=== PATIENT | female | born 1985 | race Caucasian/White ===

== ENCOUNTER → 2016-08-04 | Outpatient (REF) | payer OTHER | LOC: M SFHCLUC 12:45 | PROVIDERS: ATTEND Nurse Practitioner Family | DX: J06.9 Acute upper respiratory infection, unspecified (principal) ==

== ENCOUNTER → 2016-11-11 | Outpatient (REF) | payer OTHER | LOC: M SFHCLERA 09:19 | PROVIDERS: ATTEND Physician Assistant | DX: J02.9 Acute pharyngitis, unspecified (principal) ==

== ENCOUNTER → 2016-12-05 | Outpatient (REF) | payer OTHER ==
[2016-12-05 19:37] LABS: MEAN CORPUSCULAR HEMOGLOBIN 30.1 pg (27.0-33.0); MEAN CORPUSCULAR HGB CONC 35.1 g/dl (32.0-36.5); MEAN CORPUSCULAR VOLUME 85.8 fl (80.0-96.0); RED CELL DISTRIBUTION WIDTH 12.5 % (11.5-14.5); WHITE BLOOD COUNT 7.7 K/mm3 (4.0-10.0)
[2016-12-05 20:32] LABS: ALBUMIN 3.7 GM/DL (3.2-5.2); ALBUMIN/GLOBULIN RATIO 1.09 (1.00-1.93); ALKALINE PHOSPHATASE 70 U/L (45-117); ALT/SGPT 32 U/L (12-78); ANION GAP 8 MEQ/L (8-16); AST/SGOT 17 U/L (15-37); BILIRUBIN,TOTAL 0.3 MG/DL (0.2-1.0); BLOOD UREA NITROGEN 9 MG/DL (7-18); CALCIUM LEVEL 8.9 MG/DL (8.5-10.1); CARBON DIOXIDE LEVEL 26 MEQ/L (21-32); CHLORIDE LEVEL 103 MEQ/L (98-107); CREATININE FOR GFR 0.89 MG/DL (0.55-1.02); FREE T4 1.09 NG/DL (0.76-1.46); GLOMERULAR FILTRATION RATE > 60.0 (>60); GLUCOSE, FASTING 93 MG/DL (70-105); SODIUM LEVEL 137 MEQ/L (136-145); TOTAL PROTEIN 7.1 GM/DL (6.4-8.2)
== END ==
LOC: M SFHCLERA 16:26
PROVIDERS: ATTEND Family Medicine
DX: R63.4 Abnormal weight loss (principal)

== ENCOUNTER → 2019-06-03 | Outpatient (REF) | payer BC | LOC: M SFHCLERA 14:43 | PROVIDERS: ATTEND Physician Assistant | DX: J02.9 Acute pharyngitis, unspecified (principal) ==

== ENCOUNTER → 2019-08-02 | Outpatient (REF) | payer BC | LOC: M SFHCWAGY 09:28 | PROVIDERS: ATTEND Advanced Practice Midwife | DX: Z36.85 Encounter for antenatal screening for Streptococcus B (principal) ==

== ENCOUNTER 2019-08-22 16:30 | Inpatient (IN) | payer BC ==
[2019-08-22] VITALS (18 sets, daily range): BP systolic 111–145; BP diastolic 55–79
[~2019-08-22] VITALS: Ht 165.1 cm; Wt 115.3 kg
[2019-08-22] MEDS ORDERED: PENICILLIN G POTASSIUM IV 5 MU in D5W MINI-BAG PLUS 100 ML IV STA (17:15)
--- NOTE | 2019-08-22 17:23 | HPEPDOC ---
Obstetrical History & Physical General Date of Admission 08/22/2019 History of Present Illness Heidi Barragan is a 34-year-old female who presented to the labor and delivery suite following reported spontaneous rupture of membranes while in [place]. No contractions. No bleeding. Good movement. Pt called the NURSING DIRECTOR office and was advised by Keyon Quinones MD to come to L&D for evaluation. Chief Complaint: Rupture of membranes Information Provided By: Patient Age: 34 : 2 Term: 1 Pre-term: 0 Abortions: 0 Livin Care Care: Good Care Number of Visits: 8 Dating Final EDC: Sep 02, 2019 Final EDC by: 1st trimester (US) LMP: Nov 26, 2018 Antepartum Course Pre- weight (lbs.): 227 Past Medical History Past Obstetrical History : Past Obstetrical History: Multigravida Date of Delivery: Apr 04, 2007 Type of Delivery: Ceserean section Sex of : Male Complications: Yes Past Medical History Medical History Mastitis 2014, Fibroadenoma of breast 2018 Surgical History: Appendectomy (2011), section (2006), Tonsilectomy (2003), Other (L breast biopsy 2018; L knee surgery 2011, LEEP 2006) Family History Significant Family History: Cancer (Paternal Grandfather: colon cancer; Maternal Aunts: breast cancer), Other (1 brother and 1 sister, both with unspecified thyroid issues) Social History Marital Status: Family situation: Spouse/partner home Psychosocial History: No pertinent psych hx * Smoker: non-smoker Alcohol: Denies Drugs: denies Abuse Violence Screening Have you been hit/kicked/slapp: No Have you been sexually assault: No Allergies Coded Allergies: MS - Aminoglycosides (Unverified Allergy, Unknown, ERYTHEMA, 09/17/12) Replaces NEOMYCIN/POLY2 MS - Gramicidin (Unverified Allergy, Unknown, ERYTHEMA, 09/17/12) Replaces NEOMYCIN/POLY2 MS - Latex (Verified Allergy, Unknown, 09/17/12) MS - Neomycin (Unverified Allergy, Unknown, ERYTHEMA, 09/17/12) Replaces NEOMYCIN/POLY2 MS - Polymyxin B (Unverified Allergy, Unknown, ERYTHEMA, 09/17/12) Replaces NEOMYCIN/POLY2 Physical Examination Physical Examination GENERAL: Alert and oriented times three. BREAST: . ABDOMEN: Gravid and non-tender to touch. FETUS: Is vertex (VTX) by sterile vaginal examination (SVE), fetus is vertex (VTX) by Matt. HEART RATE: Regular rate and rhythm. LUNGS: Clear to auscultation (CTA). EXTREMITIES: No edema. No clonus. Pertinent Laboratoy Data Blood Type: A+ RBC Antibody Screen: Negative HIV: Negative Hepatitis B: Negative Hepatitis C: Negative Rapid Plasma Reagin: Nonreactive Rubella: Immune Varicella: Immune Chlamydia/Gonorrhea: Negative Group B Streptococcus: Positive Quad Screen Test: Declined Cystic Fibrosis: Declined Steroid Therapy Steroid Therapy: No Vaginal Examination Dilation: 1cm Effacement: 80% Station: -2 Cervical Consistency: Soft Cervical Position: Posterior Presentation: Cephalic presentation Position: Vertex (occiput) Assessment/Plan Assessment Heidi Barragan is a 34-year-old (G)2 para (P)1-0-0-1 at 38+3 weeks by LMP. Presents to Labor and Delivery (L&D) following reported spontaneous rupture of membranes while in [place]. Plan 1. Pt is admitted to L&D. 2. Pt counseled regarding her care and consented to the following plan. 3. Diet: Regular. 4. Group B Streptococcus (GBS) positive. Will treat with antepartum antibiotics. 5. Labs and intravenous (IV) per unit protocol. 6. Induction of labor was discussed with pt and she desired this course of action. 7. VDAC planned. Pt is aware of risks involved. GME ATTESTATION GME ATTESTATION My faculty preceptor for this patient encounter was physically present during the encounter and was fully available. All aspects of the patient interview, examination, medical decision making process, and medical care plan development were reviewed and approved by the faculty preceptor. The faculty preceptor is aware and concurs with the plan as stated in the body of this note and will attest to such by his/her cosignature. RENEE PIERRE OMS-III Aug 22, 2019 17:23
[2019-08-22] MEDS ORDERED: OXYTOCIN DRIP 30 UNITS in IV 1 EA IV SCH (17:30)
[2019-08-22] MEDS ORDERED: PREN29TA4 PO (17:41)
[2019-08-22 18:13] LABS: HEMATOCRIT 35.4 % (36.0-47.0); HEMOGLOBIN 11.3 g/dl (12.0-15.5); MEAN CORPUSCULAR HEMOGLOBIN 26.6 pg (27.0-33.0); MEAN CORPUSCULAR HGB CONC 31.9 g/dl (32.0-36.5); MEAN CORPUSCULAR VOLUME 83.3 fl (80.0-96.0); PLATELET COUNT, AUTOMATED 255 10^3/uL (150-450); RED BLOOD COUNT 4.25 10^6/uL (4.00-5.40); WHITE BLOOD COUNT 10.4 10^3/uL (4.0-10.0)
[2019-08-22] MEDS: LR 1,000 ML IV SCH ×2 (18:21→23:08)
[2019-08-22] MEDS ORDERED: PROMETHAZINE INJ 25 MG/ML VIAL (J2550) IV ONE (20:30)
[2019-08-22] MEDS ORDERED: BUTORPHANOL 2 MG/ML INJ (J0595) IV ONE (20:30)
[2019-08-22] MEDS ORDERED: FENTANYL 2MCG/ML ROPIVACAINE 0.2% IN 0.9% NACL 100ML IVBAG As Ordered ONE (22:05)
[2019-08-22] MEDS: PENICILLIN G POTASSIUM IV 2.5 MU in IV 1 EA IV SCH (23:07)
[2019-08-22] MEDS ORDERED: diphenhydrAMINE INJ 50MG/ML VIAL (J1200) IV PRN (23:30)
[2019-08-22] MEDS ORDERED: FENTANYL/ROPIVACAINE/NACL BAG 100 ML EPIDURAL SCH (23:30)
[2019-08-22] MEDS ORDERED: EPIDURAL/PCA KEYS XX PRN (23:30)
[2019-08-22] MEDS ORDERED: LACTATED RINGER'S 1000 ML IV PRN (23:30)
[2019-08-22] MEDS ORDERED: NALOXONE INJ 0.4 MG/1 ML VIAL (J2310) IV PRN (23:30)
[2019-08-22] MEDS ORDERED: REFRIGERATOR IV KEYS XX PRN (23:30)
[2019-08-22] MEDS ORDERED: ePHEDrine SULFATE 25 MG/5 ML(5MG/ML) SYRINGE IV PRN (23:30)
[2019-08-22] MEDS ORDERED: ONDANSETRON 4MG/2ML VIAL (J2405) IV PRN (23:30)
[2019-08-22] MEDS ORDERED: EPIDURAL COMMENT XX SCH (23:30)
[2019-08-23] VITALS (17 sets, daily range): BP systolic 107–135; BP diastolic 51–70
[2019-08-23] MEDS: PENICILLIN G POTASSIUM IV 2.5 MU in IV 1 EA IV SCH (02:28)
[2019-08-23] MEDS ORDERED: OXYTOCIN DRIP 30 UNITS in IV 1 EA IV ONE (05:30)
[2019-08-23] MEDS ORDERED: ACETAMINOPHEN TAB 650MG DOSE (2X325MG) PO PRN (05:30)
[2019-08-23] MEDS ORDERED: MEASLES,MUMPS,RUBELLA VACCINE INJ (MMR-II) (90707) SC SCH (05:30)
[2019-08-23] MEDS ORDERED: DOCUSATE SODIUM 100 MG CAP PO PRN (05:30)
[2019-08-23] MEDS ORDERED: METHYLERGONOVINE MALEATE 0.2 MG TAB PO PRN (05:30)
[2019-08-23] MEDS ORDERED: IBUPROFEN 600 MG TAB PO PRN (05:30)
[2019-08-23] MEDS ORDERED: ACETAMINOPHEN 500 MG TAB PO PRN (05:30)
[2019-08-23] MEDS ORDERED: RHOGAM 300 MCG (1500 IU) INJ (J2790) IM SCH (05:30)
[2019-08-23] MEDS ORDERED: DIBUCAINE 1% OINTMENT 30GM TOP PRN (05:30)
[2019-08-23] MEDS: IBUPROFEN 800 MG TAB PO PRN ×2 (05:51→15:15)
[2019-08-23] MEDS ORDERED: CALCIUM CARBONATE 500 MG CHEW U/D PO PRN (06:15)
[2019-08-23] MEDS: PRENATAL VITAMINS CHEWABLE TABLET PO SCH (09:44)
[2019-08-24] MEDS: IBUPROFEN 800 MG TAB PO PRN (04:41)
[2019-08-24 05:56] VITALS: BP 118/64
--- NOTE | 2019-08-24 07:37 | IPNPDOC ---
Progress Note Date of Service: Aug 24, 2019 Day#: 1 Progress Note SUBJECT: Heidi is a 34-year-old status post uncomplicated spontaneous vaginal delivery after doing well day # 1. She has been ambulating, voiding spontaneously without issue and tolerating regular diet. Breast feeding with nipple shield assistance. Reports soreness, but no nipple cracking or redness. Reports lochia is like a normal period. Reports some cramping with . OBJECTIVE: VITAL SIGNS: Within normal limits, afebrile. Alert and oriented times three. Breath sounds clear to auscultation. Heart rate: Regular rate and rhythm, no murmurs, rubs or gallops. Abdomen: Fundus firm at U-1. Soft, appropriately tender. Minimal lochia. ASSESSMENT: day #1. PLAN: 1. Discharge to home tomorrow. 2. Tylenol and Motrin for pain. 3. Encourage breast feeding and ambulation. Encourage lanolin use. 4. Routine care. VS, I&O, 24H, Fishbone Vital Signs/I&O Vital Signs Date Time Temp Pulse Resp B/P (MAP) Pulse Ox O2 Delivery O2 Flow Rate FiO2 08/24/19 05:56 98.1 77 18 118/64 (82) 08/23/19 05:30 98 Room Air I&O- Last 24 Hours up to 6 AM 08/24/19 06:00 Intake Total 500 ml Output Total 750 ml Balance -250 ml Arielle Almanza CNM Aug 24, 2019 07:37
[2019-08-24] MEDS: PRENATAL VITAMINS CHEWABLE TABLET PO SCH (09:05)
--- NOTE | 2019-08-24 10:31 | DN ---
DATE OF DELIVERY: 08/23/2019 PREDELIVERY DIAGNOSIS: 38-3/7 weeks gestation, spontaneous rupture of membranes, early labor, trial of labor after (TOLAC). POSTDELIVERY DIAGNOSIS: Delivered. PROCEDURE: Spontaneous vaginal delivery. CURRICULUM WRITER: Keyon Quinones MD ANESTHESIA: Epidural. ESTIMATED BLOOD LOSS: 300 mL. FINDINGS: 6 pound 13 ounce female . scores 8 and 9. DELIVERY SUMMARY: After a 10 minute second stage, the patient had spontaneous delivery of a 6 pound 13 ounce female , scores 8 and 9 under epidural anesthesia. There was no nuchal cord. The shoulders delivered with ease. The cried immediately and was handed to the mother. The cord was doubly clamped and cut. The placenta delivered spontaneously and appeared to be intact. The patient received IV Pitocin immediately after delivery of the placenta. A first-degree perineal laceration was repaired with 2-0 chromic in the usual fashion. Sponge counts were correct.
== END 2019-08-24 13:37 | disposition home or self-care (01) | DRG 560 ==
LOC: M LDO 16:30 → M LDI 17:06 → M OBS 08-23 08:36
PROVIDERS: ADMIT Specialist; ATTEND Specialist
PROC: 10E0XZZ Delivery of Products of Conception, External Approach (ICD-10-PCS; principal; 2019-08-23)
PROC: 0HQ9XZZ Repair Perineum Skin, External Approach (ICD-10-PCS; 2019-08-23)
DX: O34.211 Maternal care for low transverse scar from previous cesarean delivery (principal); Z3A.38 38 weeks gestation of pregnancy; O70.0 First degree perineal laceration during delivery; Z37.0 Single live birth

== ENCOUNTER → 2020-02-14 | Outpatient (REF) | payer BC, MEDICAID ==
[~2020-02-14] MED LIST: PREN29TA4 PO
== END ==
LOC: M WHC 10:00
PROVIDERS: ATTEND Specialist
DX: Z12.4 Encounter for screening for malignant neoplasm of cervix (principal)

== ENCOUNTER → 2021-04-29 | Outpatient (REF) | payer BC, MEDICAID ==
[2021-04-29 17:40] LABS: C REACTIVE PROTEIN QUANTITATIV 0.42 MG/DL (0.00-0.30); MAGNESIUM LEVEL 2.3 MG/DL (1.8-2.4); PHOSPHORUS LEVEL 3.5 MG/DL (2.5-4.9)
[2021-04-29 18:39] LABS: TOTAL 25(OH) VITAMIN D 33.8 NG/ML (30.0-100.0)
== END ==
LOC: M SFHCRHEU 14:58
PROVIDERS: ATTEND Internal Medicine
DX: M79.10 Myalgia, unspecified site (principal); R79.82 Elevated C-reactive protein (CRP); M54.9 Dorsalgia, unspecified

== ENCOUNTER → 2021-08-30 | Outpatient (CLI) | payer BC, MEDICAID | LOC: M RAD 07:37 | PROVIDERS: ATTEND Internal Medicine | DX: M54.9 Dorsalgia, unspecified (principal) ==

== ENCOUNTER 2023-01-31 10:32 | Emergency (ER) | payer BC, MEDICAID ==
[~2023-01-31] VITALS: Ht 165.1 cm; Wt 98.5 kg
[2023-01-31 12:05] LABS: BASO # 0.1 10^3/uL (0.0-0.2); BASO % 0.8 % (0.0-1.0); EOS # 0.3 10^3/uL (0.0-0.5); EOS % 3.9 % (0.0-3.0); HEMATOCRIT 43.9 % (36.0-47.0); HEMOGLOBIN 14.6 g/dl (12.0-15.5); LYMPH # 2.3 10^3/uL (1.5-5.0); LYMPH % 35.7 % (24.0-44.0); MEAN CORPUSCULAR HEMOGLOBIN 29.3 pg (27.0-33.0); MEAN CORPUSCULAR HGB CONC 33.3 g/dl (32.0-36.5); MEAN CORPUSCULAR VOLUME 88.2 fl (80.0-96.0); MONO # 0.4 10^3/uL (0.0-0.8); MONO % 6.5 % (2.0-8.0); NEUTROPHILS # 3.4 10^3/uL (1.5-8.5); NEUTROPHILS % 52.9 % (36.0-66.0); PLATELET COUNT, AUTOMATED 267 10^3/uL (150-450); RED BLOOD COUNT 4.98 10^6/uL (4.00-5.40); WHITE BLOOD COUNT 6.3 10^3/uL (4.0-10.0)
[2023-01-31 12:28] LABS: BLOOD UREA NITROGEN 7 MG/DL (9-23); CALCIUM LEVEL 8.9 MG/DL (8.5-10.1); CARBON DIOXIDE LEVEL 23 MMOL/L (20-31); CHLORIDE LEVEL 108 MMOL/L (98-107); CREATININE FOR GFR 0.89 MG/DL (0.55-1.30); GLOMERULAR FILTRATION RATE > 60.0 (>60); GLUCOSE, FASTING 86 MG/DL (60-100); POTASSIUM SERUM 3.8 MMOL/L (3.5-5.1); SODIUM LEVEL 142 MMOL/L (136-145)
[2023-01-31 13:16] LABS: HCG, SERUM QUALITATIVE NEGATIVE (NEGATIVE)
[2023-01-31] MEDS ORDERED: ISOVUE-370 76% 100ML VIAL As Ordered ONE (13:32)
[2023-01-31] MEDS ORDERED: NS 1,000 ML IV ONE ×2 (14:20)
[2023-01-31] MEDS: ONDANSETRON 4MG 2ML VIAL IV ONE ×2 (14:23→15:26)
[2023-01-31 14:39] LABS: LDH LACTATE DEHYDROGENASE 160 U/L (120-246)
[2023-01-31 15:00] LABS: CA19-9 TUMOR MARKER,CARBOHYDRA 35.3 U/ML (<35.0)
[2023-01-31 15:22] LABS: LIPASE 28 U/L (12-53)
[2023-01-31] MEDS ORDERED: ONDA4TAB6 PO (15:22)
[2023-01-31 15:35] VITALS: BP 132/64; TEMP 97; O2SAT 98
== END 2023-01-31 15:46 | disposition home or self-care (01) ==
LOC: M ED 10:32
DX: N92.0 Excessive and frequent menstruation with regular cycle (principal); K86.9 Disease of pancreas, unspecified; R63.0 Anorexia; R01.1 Cardiac murmur, unspecified; R87.810 Cervical high risk human papillomavirus (HPV) DNA test positive; K64.9 Unspecified hemorrhoids; Z91.040 Latex allergy status
CPT/HCPCS: 74177; 76830; 76856; 80048; 81001; 83615; 83690; 84703; 85025; 86301; 86850; 86900; 86901; 93976; 96374; 99284; J2405; Q9967

== ENCOUNTER → 2023-02-01 | Outpatient (REF) | payer BC ==
[~2023-02-01] MED LIST changes: +ONDA4TAB6 PO
== END ==
LOC: M LAB REF 14:39
PROVIDERS: ATTEND Physician Assistant Medical
DX: R19.7 Diarrhea, unspecified (principal)

== ENCOUNTER → 2023-02-15 | Outpatient (CLI) | payer BC ==
[~2023-02-15] MED LIST changes: +GASTROGRAFIN SOLUTION 30ML As Ordered ONE; +ISOVUE-370 76% 100ML VIAL As Ordered ONE
== END ==
LOC: M RAD 11:28
PROVIDERS: ATTEND Surgery
DX: K86.2 Cyst of pancreas (principal)
CPT/HCPCS: 74177; Q9963; Q9967

== ENCOUNTER → 2023-03-31 | Outpatient (CLI) | payer BC ==
[~2023-03-31] MED LIST changes: -GASTROGRAFIN SOLUTION 30ML As Ordered ONE; -ISOVUE-370 76% 100ML VIAL As Ordered ONE; +PROHANCE 279.3MG/ML 15ML VIAL As Ordered ONE; +PROHANCE 279.3MG/ML 5ML VIAL As Ordered ONE
== END ==
LOC: M RAD 10:16
PROVIDERS: ATTEND Surgery
DX: D48.7 Neoplasm of uncertain behavior of other specified sites (principal)

== ENCOUNTER 2023-09-07 13:12 | Day surgery (SDC) | payer BC ==
[~2023-09-07] VITALS: Ht 165.1 cm; Wt 85.7 kg
[~2023-09-07 13:12] MED LIST changes: +COLLCAP PO; +JOINCAP2 PO; +NS 1,000 ML IV ONE; -PROHANCE 279.3MG/ML 15ML VIAL As Ordered ONE; -PROHANCE 279.3MG/ML 5ML VIAL As Ordered ONE; +ROSU10TA6 PO; +VITMTA PO
[2023-09-07] MEDS ORDERED: LIDOCAINE 2% 100MG/5ML SDV (FOR ANES.) As Ordered ONE (14:10)
[2023-09-07] MEDS ORDERED: propofoL 200 MG/20 ML VIAL As Ordered ONE (14:10)
[2023-09-07] MEDS ORDERED: SIMETHICONE 40MG/0.6ML DROPS 30ML As Ordered ONE (14:45)
[2023-09-07 15:18] VITALS: TEMP 97.2
[2023-09-07 15:33] VITALS: BP 131/69; O2SAT 100
== END 2023-09-07 15:44 | disposition home or self-care (01) ==
LOC: M OPP 13:12
PROVIDERS: ATTEND Internal Medicine Gastroenterology
DX: D12.4 Benign neoplasm of descending colon (principal); D12.5 Benign neoplasm of sigmoid colon; K64.8 Other hemorrhoids; R19.4 Change in bowel habit; Z79.02 Long term (current) use of antithrombotics/antiplatelets; Z91.040 Latex allergy status

== ENCOUNTER 2025-04-22 17:06 | Emergency (ER) | payer MEDICAID, OTHER ==
[~2025-04-22] VITALS: Ht 165.1 cm; Wt 74.5 kg
[~2025-04-22 17:06] MED LIST changes: -NS 1,000 ML IV ONE; +ONDA-282 PO; -ONDA4TAB6 PO; -ROSU10TA6 PO; +ROSU10TA90 PO
[2025-04-22 19:18] VITALS: BP 132/80; TEMP 98.2; O2SAT 98
[2025-04-22] MEDS ORDERED: INDO50CA91 PO (19:33)
== END 2025-04-22 19:49 | disposition home or self-care (01) ==
LOC: M ED 17:06
DX: I80.02 Phlebitis and thrombophlebitis of superficial vessels of left lower extremity (principal); Z79.899 Other long term (current) drug therapy; Z88.0 Allergy status to penicillin; Z91.040 Latex allergy status